=== PATIENT | male | born 1950 | race Caucasian/White ===

== ENCOUNTER 2021-05-24 16:56 | Emergency (ER) | payer SELFPAY ==
[2021-05-24] MEDS ORDERED: Boostrix 0.5 ML (Tdap) VIAL ONE (17:24)
== END 2021-05-24 18:25 | disposition home or self-care (01) ==
LOC: MADERS 16:56
DX: S01.01XA Laceration without foreign body of scalp, initial encounter (principal); S80.811A Abrasion, right lower leg, initial encounter; S60.511A Abrasion of right hand, initial encounter; I10 Essential (primary) hypertension; F17.210 Nicotine dependence, cigarettes, uncomplicated; Z79.899 Other long term (current) drug therapy; V48.5XXA Car driver injured in noncollision transport accident in traffic accident, initial encounter; Z23 Encounter for immunization
CPT/HCPCS: 12001; 70450; 72125; 90471; 90715; G0390